=== PATIENT | female | born 1945 | race Caucasian/White ===

== ENCOUNTER 2018-05-19 13:56 | Outpatient (CLI) | payer OTHER | END 2018-05-19 14:16 | disposition home or self-care (01) | LOC: MAMO-SONO 13:56 | DX: Z12.31 Encounter for screening mammogram for malignant neoplasm of breast (principal); Z87.898 Personal history of other specified conditions ==

== ENCOUNTER 2021-08-06 17:35 | Emergency (ER) | payer OTHER ==
[~2021-08-06] VITALS: Ht 154.9 cm; Wt 58.1 kg
[2021-08-06] MEDS ORDERED: LIPITOR40 MG (17:54)
[2021-08-06] MEDS ORDERED: CANDESARTAN CILE8 MG (17:55)
[2021-08-06] MEDS ORDERED: MOTION SICKNESS25 M1 PO (19:38)
[2021-08-06] MEDS ORDERED: MOTION SICKNESS25 M2 PO (19:40)
[2021-08-06] MEDS ORDERED: IBU800 MG PO (19:42)
== END 2021-08-06 20:25 | disposition home or self-care (01) ==
LOC: ER 17:35
DX: S00.83XA Contusion of other part of head, initial encounter (principal); S20.221A Contusion of right back wall of thorax, initial encounter; S70.11XA Contusion of right thigh, initial encounter; W22.8XXA Striking against or struck by other objects, initial encounter; Y93.89 Activity, other specified; Y92.018 Other place in single-family (private) house as the place of occurrence of the external cause; Y99.8 Other external cause status

== ENCOUNTER 2022-03-05 16:43 | Emergency (ER) | payer OTHER ==
[~2022-03-05] VITALS: Ht 157.5 cm; Wt 59.0 kg
[~2022-03-05 16:43] MED LIST: CANDESARTAN CILE8 MG; IBU800 MG PO; LIPITOR40 MG; MOTION SICKNESS25 M1 PO; MOTION SICKNESS25 M2 PO
[2022-03-05] MEDS ORDERED: PROZAC10 MG (17:03)
[2022-03-05] MEDS ORDERED: ORPHENADRINE C100 MG PO (17:58)
[2022-03-05] MEDS ORDERED: TYLENOL ARTHRI650 MG PO (17:58)
== END 2022-03-05 18:23 | disposition home or self-care (01) ==
LOC: ER 16:43
DX: M51.17 Intervertebral disc disorders with radiculopathy, lumbosacral region (principal); I10 Essential (primary) hypertension

== ENCOUNTER 2022-12-18 13:34 | Emergency (ER) | payer OTHER ==
[~2022-12-18] VITALS: Ht 157.5 cm; Wt 61.2 kg
[~2022-12-18 13:34] MED LIST changes: +ORPHENADRINE C100 MG PO; +PROZAC10 MG; +TYLENOL ARTHRI650 MG PO
[2022-12-18] MEDS ORDERED: GABAPENTIN300 M2 PO (13:56)
[2022-12-18] MEDS ORDERED: ANTIVERT25 M2 PO (13:57)
== END 2022-12-18 16:52 | disposition home or self-care (01) ==
LOC: ER 13:34
DX: L03.116 Cellulitis of left lower limb (principal)

== ENCOUNTER 2024-11-03 18:16 | Emergency (ER) | payer OTHER ==
[~2024-11-03] VITALS: Ht 154.9 cm; Wt 60.8 kg
[~2024-11-03 18:16] MED LIST changes: +ANTIVERT25 M2 PO; +GABAPENTIN300 M2 PO
[2024-11-03] MEDS ORDERED: KETOROLAC TROMETHAMINE 30 MG VIAL IM ONE (19:30)
[2024-11-03] MEDS ORDERED: ORPHENADRINE CITRATE 30 MG/ML AMPUL IM ONE (19:30)
[2024-11-03] MEDS ORDERED: TRIAMCINOLONE ACETONIDE 40 MG/ML VIAL IM ONE (19:30)
[2024-11-03] MEDS ORDERED: BACLOFEN10 MG PO (19:57)
[2024-11-03] MEDS ORDERED: MOBIC7.5 MG PO (19:57)
== END 2024-11-03 20:24 ==
LOC: ER 18:19
DX: M54.16 Radiculopathy, lumbar region (principal); I10 Essential (primary) hypertension; M19.90 Unspecified osteoarthritis, unspecified site
CPT/HCPCS: 96365; 99282; J1885; J2360; J3301

== ENCOUNTER 2024-11-12 12:39 | Emergency (ER) | payer OTHER ==
[~2024-11-12] VITALS: Ht 154.9 cm; Wt 59.9 kg
[~2024-11-12 12:39] MED LIST changes: +BACLOFEN10 MG PO; +MOBIC7.5 MG PO
[2024-11-12] MEDS ORDERED: KETOROLAC TROMETHAMINE 30 MG VIAL IM STA (14:19)
[2024-11-12] MEDS ORDERED: DEXAMETHASONE SODIUM PHOSPHATE 4 MG/ML VIAL IM STA (14:19)
== END 2024-11-12 15:11 | disposition home or self-care (01) ==
LOC: ER 12:42
DX: M25.551 Pain in right hip (principal)
CPT/HCPCS: 96372; 99282; J1100; J1885

== ENCOUNTER 2024-12-07 15:57 | Emergency (ER) | payer OTHER ==
[~2024-12-07] VITALS: Ht 154.9 cm; Wt 60.8 kg
[2024-12-07] MEDS ORDERED: PROZAC20 MG PO (16:27)
[2024-12-07 17:05] LABS: HEMATOCRIT 37.5 % (36.0-45.00); HEMOGLOBIN 12.9 g/dL (12.0-15.00); MEAN CELL VOLUME 92.3 fL (80.00-100.00); MEAN CORPUSCULAR HEMOGLOBIN 31.8 pg (27.00-32.0); MEAN CORPUSCULAR HGB CONC 34.5 g/dl (32.0-36.0); PLATELET COUNT 247 K/uL (150-450); RED BLOOD COUNT 4.06 M/uL (4.00-6.00); RED CELL DISTRIBUTION WIDTH 13.2 % (11.5-14.5)
[2024-12-07 18:15] LABS: CALCIUM 9.5 mg/dL (8.5-10.1); CREATININE SERUM 0.66 mg/dL (0.55-1.02); GFR 86.61; POTASSIUM 3.94 mEq/L (3.5-5.1)
[2024-12-07] MEDS ORDERED: CEFTRIAXONE SODIUM 1,000 MG VIAL IM STA (18:23)
[2024-12-07] MEDS ORDERED: LIDOCAINE HCL 1% 10ML VIAL ONE (18:34)
[2024-12-07] MEDS ORDERED: CEFTRIAXONE SODIUM 1,000 MG VIAL ONE (18:35)
== END 2024-12-07 18:49 | disposition home or self-care (01) ==
LOC: ER 15:58
PROVIDERS: General Practice
DX: L03.90 Cellulitis, unspecified (principal)

== ENCOUNTER 2024-12-11 20:51 | Emergency (ER) | payer OTHER ==
[~2024-12-11] VITALS: Ht 154.9 cm; Wt 60.8 kg
[~2024-12-11 20:51] MED LIST changes: +PROZAC20 MG PO
[2024-12-12] MEDS ORDERED: ENOXAPARIN SODIUM 60 MG/0.6 ML SYRINGE SUBCUTANEO STA (00:25)
[2024-12-12] MEDS ORDERED: CEFTRIAXONE SODIUM 1,000 MG VIAL IV STA (00:26)
[2024-12-12] MEDS ORDERED: ENOXAPARIN SODIUM 60 MG/0.6 ML SYRINGE SUBCUTANEO ONE (00:27)
[2024-12-12] MEDS ORDERED: CEFTRIAXONE SODIUM 1,000 MG VIAL ONE (00:27)
[2024-12-12 01:07] LABS: HEMATOCRIT 40.3 % (36.0-45.00); HEMOGLOBIN 13.6 g/dL (12.0-15.00); MEAN CELL VOLUME 93.9 fL (80.00-100.00); MEAN CORPUSCULAR HEMOGLOBIN 31.6 pg (27.00-32.0); MEAN CORPUSCULAR HGB CONC 33.6 g/dl (32.0-36.0); PLATELET COUNT 236 K/uL (150-450); RED CELL DISTRIBUTION WIDTH 13.5 % (11.5-14.5)
[2024-12-12 01:15] LABS: PARTIAL THROMBOPLASTIN TIME 22.8 SECONDS (22.0-34.0); PROTHROMBIN TIME 10.9 SECONDS (9.0-11.5)
[2024-12-12 01:35] LABS: ALBUMIN 3.8 gm/dL (3.4-5.0); BILIRUBIN TOTAL 0.3 mg/dL (0.3-1.2); CALCIUM 9.4 mg/dL (8.5-10.1); CREATININE SERUM 0.92 mg/dL (0.55-1.02); GFR 59.04; POTASSIUM 3.87 mEq/L (3.5-5.1); TOTAL PROTEIN 7.8 gm/dL (6.4-8.2)
[2024-12-12 07:25] VITALS: BP 136/76; O2SAT 96
== END 2024-12-12 11:49 | disposition home or self-care (01) ==
LOC: ER 20:52
PROVIDERS: General Practice
DX: M79.605 Pain in left leg (principal); I73.89 Other specified peripheral vascular diseases; I82.890 Acute embolism and thrombosis of other specified veins
CPT/HCPCS: 36415; 93970; 96365; 99284; J0696; J1650